=== PATIENT | male | born 1990 | race Caucasian/White ===

== ENCOUNTER → 2018-04-26 | Day surgery (SDC) | payer BC, OTHER ==
[~2018-04-26] MED LIST: ACETAMINOPHEN 1000 MG/100 ML IV ONE; ALLERGY MED PO; BUPIVACAINE 0.25% 30ML SDV INJ ONE; CLARITIN PO; DEXAMETHASONE SOD PHOS INJ 4 MG/ML VIAL ONE; FENTANYL CITRATE/PF 100MCG/2 ML INJ ONE; FLONASE; GLYCOPYRROLATE INJ 1MG/ 5 ML SYR ONE; LIDOCAINE HCL (LTA) 4 ML SOLN ONE; LIDOCAINE HCL 2% LOCAL INJ 5 ML SDV VIAL INJ ONE; MAGNESIUM250 M1 PO; MIDAZOLAM HCL 2 MG/2 ML VIAL ONE; NEOSTIGMINE 5 MG/5ML SYR ONE; OMEPRAZOLE PO; OMEPRAZOLE20 MG PO; ONDANSETRON HCL INJ 2 MG/ML VIAL ONE; OXYMETAZOLINE HCL 0.05% NAS 1 SPRAY BTL ONE; PROPOFOL IV EMULSION 10 MG/ML 20 ML VIAL ONE; ROCURONIUM BROMIDE 10 MG/ML 5ML VIAL ONE; SEVOFLURANE INHAL SOLN 250 ML PEN BTL ONE; SUGAMMADEX SODIUM 200 MG/2 ML VIAL IV ONE; VITAMIN D PO
[2018-04-26 13:30] VITALS: BP 135/84
--- NOTE | 2018-04-26 13:47 | Operative Report ---
DATE OF PROCEDURE: April 26, 2018 PREOPERATIVE DIAGNOSES 1. Chronic adenotonsillitis. 2. Tonsilliths. POSTOPERATIVE DIAGNOSES 1. Chronic adenotonsillitis. 2. Tonsilliths. PROCEDURE: Tonsillectomy and adenoidectomy. SIGNIFICANT FINDINGS: Tonsillar 2-3+/2-3+ bilaterally, scarred and cryptic filled with copious amounts of tonsilliths. Adenoids are mildly enlarged. ANESTHESIA: General endotracheal tube anesthesia. SPECIMENS REMOVED: Tonsils (adenoids were coblated). ESTIMATED BLOOD LOSS: Less than 1 mL. COMPLICATIONS: None. INDICATIONS: Patient a 27-year-old white male with greater than 15 years history of bilateral tonsillar discomfort and foul smelling debris, which collects within the substance of the tonsils. He has had no previous throat surgery. On examination, his tonsils are 2-3+/2-3+, cryptic, scarred containing generous amounts of tonsilliths. He is scheduled for tonsillectomy and adenoidectomy for the treatment of chronic adenotonsillitis and tonsillitis. The risks and complications of the procedures were thoroughly discussed with patient, and they include infection, bleeding, scarring, failure to improve, need for additional operations, persistent collection of tonsillar debris, persistent throat pain, damage to teeth, gums, tongue and lips, voice changes, chronic throat pain, numbness of the tongue, inability to taste, leakage of fluid through the nose when drinking liquids, scarring of the pharynx resulting in permanent worse nasal obstruction, damage to the eustachian tube orifices causing middle ear fluid and hearing loss, need for blood transfusions, damage to surrounding nerves, blood, and muscles. He fully understands and gives consent. PROCEDURE: Patient was taken to the operating room and placed supine on the operating table where general anesthesia was achieved through orotracheal intubation. Eyes were taped and shoulder roll was placed. Head and body were draped. Table was turned 90 degrees with the head toward the surgeon. Gemma-Ariel mouth gag was inserted without difficulty and placed into suspension on a [place] stand. There is no evidence of bifid uvula, diastasis of the muscular uvulae or notched hard palate. Red rubber catheters were then inserted into the nose and brought out through the mouth to retract the soft palate. Examination of the nasopharynx revealed the adenoids to be mildly hypertrophied. Tonsils were 2-3+/2-3+ bilaterally, scarred and cryptic with generous amount of tonsilliths within the substance of both tonsils. The left tonsil was grasped with a tonsillar Allis clamp and was removed with the ArthroCare Coblator on a setting of 6 on cut mode taking care to stay on the capsule of the tonsil. The right tonsil was removed in the same way. Both tonsillar beds were significantly scarred. Hemostasis was obtained with the Coblator on a setting of 3 on coag mode. This was done on both tonsillar beds. The adenoids were then removed with the ArthroCare Coblator on a setting of 8 on cut mode taking care to avoid trauma to the torus tubarius bilaterally. Hemostasis was obtained with the Coblator on a setting of 3 on coag mode. Following this, injection with 3 mL of 0.25% plain Marcaine was injected into the free edges of the anterior and posterior tonsillar pillars. Thorough irrigation was then performed. Stomach contents were suctioned with an NG tube. The red rubber catheters and Gemma-Ariel mouth gag were then removed without difficulty revealing no trauma to the teeth, gums, tongue, and lips. Patient was awakened in the operating room, extubated and taken to the recovery room in good condition. Job#: [id number] DANUTA HERNANDEZ
== END | disposition home or self-care (01) ==
LOC: OR 08:31
PROVIDERS: ATTEND Otolaryngology
DX: J35.03 Chronic tonsillitis and adenoiditis (principal); A42.9 Actinomycosis, unspecified; G47.33 Obstructive sleep apnea (adult) (pediatric); J45.909 Unspecified asthma, uncomplicated; K21.9 Gastro-esophageal reflux disease without esophagitis; T78.40XA Allergy, unspecified, initial encounter; X58.XXXA Exposure to other specified factors, initial encounter
CPT/HCPCS: 42821; 88304; J0131; J1100; J2001; J2250; J2405; J2704; J3490